=== PATIENT | female | born 1960 ===

== ENCOUNTER 2018-10-21 10:51 | Outpatient (CLI) | payer BC ==
--- NOTE | 2018-10-21 11:49 | BD ---
Exam: DEXA Bone Density History: 57-year-old post-menopausal female for screening. Comparison: None. Lumbar Spine: BMD (g/cm2) L1 0.804 T-Score: -1.7 L2 0.892 T-Score: -1.2 L3 0.836 T-Score: -2.3 L4 0.769 T-Score: -2.7 L1-L4 0.824 T-Score: -2.0 Femoral Neck: 0.650 T-Score: -1.8 Total Femur: 0.813 T-Score: -1.1 Impression: Osteopenia. This patient has a 10-year WHO fracture risk of a major osteoporotic fracture of 13% and a hip fracture of 0.7%. POS: C
== END 2018-10-21 10:52 | disposition home or self-care (01) ==
LOC: BICMAMMO 10:51
PROVIDERS: ATTEND Student in an Organized Health Care Education/Training Program
DX: Z13.820 Encounter for screening for osteoporosis (principal); M81.0 Age-related osteoporosis without current pathological fracture; M85.859 Other specified disorders of bone density and structure, unspecified thigh
CPT/HCPCS: 77080